=== PATIENT | male | born 1950 | race American Indian/Alaskan Native ===

== ENCOUNTER 2017-01-02 12:02 | Emergency (ER) | payer MEDICARE, BC ==
[~2017-01-02] VITALS: Ht 175.3 cm; Wt 67.1 kg
[2017-01-02] MEDS ORDERED: predniSONE 20 MG TABLET PO ONE (12:22)
--- NOTE | 2017-01-02 12:24 | NUR ---
pt is in room #2a. dr neumann evaluated the pt.
[2017-01-02] MEDS ORDERED: AMOXICILLIN-CLAVUL 875-125MG TABLET PO ONE (12:30)
--- NOTE | 2017-01-02 12:38 | NUR ---
pt was d/c to home. d/c instructions given to the pt.
[2017-01-02] MEDS ORDERED: predniSONE 20 MG TABLET ONE (12:41)
[2017-01-02] MEDS ORDERED: AMOXICILLIN-CLAVUL 875-125MG TABLET ONE (12:44)
[2017-01-02 12:47] VITALS: BP 142/73
== END 2017-01-02 12:49 | disposition home or self-care (01) ==
LOC: ER 12:02
DX: J32.9 Chronic sinusitis, unspecified (principal); I10 Essential (primary) hypertension; J45.909 Unspecified asthma, uncomplicated
CPT/HCPCS: 99283; A4663; J7512

== ENCOUNTER 2018-11-29 20:23 | Emergency (ER) | payer MEDICARE, BC ==
[~2018-11-29] VITALS: Ht 167.6 cm; Wt 68.9 kg
--- NOTE | 2018-11-29 20:36 | NUR ---
SPO2 95 HR 96 PT ENDORSES SYMPTOMS STARTED 5DAYS AGO PT SKIN PINK, MOIST +CAPILLARY REFILL
[2018-11-29] MEDS ORDERED: methylPREDNISolone SOD SUCC 125 MG/2 ML VIAL IV ONE (21:15)
[2018-11-29] MEDS ORDERED: ALBUTEROL SULFATE 2.5 MG/3 ML NEBU NEB ONE (21:15)
[2018-11-29] MEDS ORDERED: ALBUTEROL SULFATE 2.5 MG/3 ML NEBU ONE (21:23)
[2018-11-29 21:27] LABS: BASOPHILS # (AUTO) 0.1 K/uL (0.0-8.0); EOSINOPHILS % (AUTO) 0.1 % (0.0-7.0); HEMATOCRIT 44.1 % (36.7-47.1); HEMOGLOBIN 14.6 g/dL (12.5-16.3); LYMPHOCYTES # (AUTO) 1.5 K/uL (20.0-40.0); LYMPHOCYTES % (AUTO) 15.2 % (20.5-51.5); MEAN CORPUSCULAR HEMOGLOBIN 31.8 uug (23.8-33.4); MEAN CORPUSCULAR HGB CONC 33 g/dL (32.5-36.3); MEAN CORPUSCULAR VOLUME 95.8 fL (73.0-96.2); MONOCYTES # (AUTO) 0.7 K/uL (2.0-10.0); MONOCYTES % (AUTO) 7.7 % (0.0-11.0); NEUTROPHILS # (AUTO) 7.3 K/uL (1.8-8.9); PLATELET COUNT (AUTO) 253 K/uL (152-348); WHITE BLOOD COUNT (AUTO) 9.6 K/uL (3.6-10.2)
[2018-11-29 21:33] LABS: CREATININE 1.2 mg/dL (0.6-1.3); POTASSIUM 4.4 mmol/L (3.5-5.1)
[2018-11-29] MEDS ORDERED: methylPREDNISolone SOD SUCC 125 MG/2 ML VIAL ONE (21:40)
[2018-11-29 21:46] LABS: BILIRUBIN,DIRECT 0.1 mg/dL (0.0-0.2); BILIRUBIN,TOTAL 0.4 mg/dL (0.2-1.0); TOTAL PROTEIN, SERUM 7.1 g/dL (6.4-8.2)
[2018-11-29] MEDS ORDERED: AZITHROMYCIN 250 MG TABLET PO ONE (22:00)
[2018-11-29] MEDS ORDERED: AZITHROMYCIN 250 MG TABLET ONE (22:04)
--- NOTE | 2018-11-29 22:18 | NUR ---
reassessed noted decrease in wheezing on both lung garcia spo2 at 97% hr 91
[2018-11-29] MEDS ORDERED: BENZONATATE 100 MG CAPSULE PO ONE (23:00)
[2018-11-29] MEDS ORDERED: BENZONATATE 100 MG CAPSULE ONE (23:11)
--- NOTE | 2018-11-29 23:15 | NUR ---
PT RR AT 18 HR 93 BP 131/68 SPO2 95 DENIES SOB, NO WHEEZING Patient discharged to home in stable conditon. Written and verbal after care instructions given. Patient verbalizes understanding of instructions. AMBULATORY W/ STABLE GAIT ALL BELONGINGS W/ PT
[2018-11-29 23:18] VITALS: BP 130/70
== END 2018-11-29 23:19 | disposition home or self-care (01) ==
LOC: ER 20:23
DX: J40 Bronchitis, not specified as acute or chronic (principal); I10 Essential (primary) hypertension; J45.909 Unspecified asthma, uncomplicated
CPT/HCPCS: 36415; 71045; 80048; 80076; 83880; 84484; 85025; 87040 ×2; 93005; 94644; 96374; 99285; J2930; 70030-TC; A4663; Q0144

== ENCOUNTER 2018-12-12 20:39 | Emergency (ER) | payer MEDICARE, BC ==
[~2018-12-12] VITALS: Ht 167.6 cm; Wt 68.0 kg
--- NOTE | 2018-12-12 20:55 | NUR ---
Dr. Smith at bedside for MSE.
[2018-12-12] MEDS: predniSONE 20 MG TABLET PO ONE (21:02)
[2018-12-12] MEDS ORDERED: predniSONE 20 MG TABLET ONE (21:05)
[2018-12-12] MEDS ORDERED: ALBUTEROL SULFATE 2.5 MG/3 ML NEBU ONE (21:09)
[2018-12-12] MEDS ORDERED: IPRATROPIUM BROMIDE 0.5 MG/2.5 ML NEBU ONE (21:09)
[2018-12-12] MEDS: IPRATROPIUM BROMIDE 0.5 MG/2.5 ML NEBU NEB ONE (21:10)
[2018-12-12] MEDS: ALBUTEROL SULFATE 2.5 MG/3 ML NEBU NEB ONE (21:10)
--- NOTE | 2018-12-12 21:10 | NUR ---
Respiratory at bedside.
--- NOTE | 2018-12-12 21:43 | NUR ---
Xray at bedside.
[2018-12-12 22:45] VITALS: BP 137/63
--- NOTE | 2018-12-12 22:45 | NUR ---
Patient discharged to home in stable conditon. Written and verbal after care instructions given. Patient verbalizes understanding of instructions. Pt ambulated out of ER with steady gait, no acute signs of distress, VSS, all belongings taken.
== END 2018-12-12 22:46 | disposition home or self-care (01) ==
LOC: ER 20:40
DX: J45.901 Unspecified asthma with (acute) exacerbation (principal); I10 Essential (primary) hypertension
CPT/HCPCS: 71045; 94640; 99283; J7512; A4663; J3590